=== PATIENT | female | born 1965 | race Caucasian/White ===

== ENCOUNTER 2017-05-04 13:38 | Day surgery (SDC) | payer BC ==
--- NOTE | ~2017-05-04 | EGD ---
EGD REPORT [facility] [address] [address] NAME: ALVIN NARVAEZ : [birth year] STATUS : REG [facility]#: [id number] AGE: 51 ADM/REG DATE : 05/04/17 MR#: [id number] REPORT SERV DATE: 05/04/17 DICTATED BY: KATIE JUNG DATE: 05/04/17 REPORT STATUS : Draft [facility]: [facility] DATE: 05/04/17 Endoscopy Center Patient Name: Alvin Narvaez Date of : 1965 Attending MD: KATIE JUNG, Procedure Date No Time: 05/04/2017 Procedure: Upper EUS Indications: Suspected solid pancreatic neoplasm Referring MD: Khurram Maya Medicines: Monitored Anesthesia Care Complications: No immediate complications. Estimated blood loss: None. Procedure: Pre-Anesthesia Assessment: - ASA Grade Assessment: II - A patient with mild systemic disease. After obtaining informed consent, the endoscope was passed under direct vision. Throughout the procedure, the patient's blood pressure, pulse, and oxygen saturations were monitored continuously. The Endoscope was introduced through the mouth, and advanced to the second part of duodenum. Findings: Endosonographic Finding : A round mass was identified in the pancreatic body. The mass was hypoechoic. The mass measured 31 mm by 28 mm in maximal cross-sectional diameter. The endosonographic borders were well-defined. There was sonographic evidence suggesting invasion into the splenic artery (manifested by encasement). An intact interface was seen between the mass and the portal vein, superior mesenteric vein, splenoportal confluence, celiac trunk and superior mesenteric artery suggesting a lack of invasion. Fine needle aspiration was performed. Color Doppler imaging was utilized prior to needle puncture to confirm a lack of significant vascular structures within the needle path. Six passes were made with the 22 gauge needle using a transgastric approach. A preliminary cytologic examination was not performed. Final cytology results are pending. There was no sign of significant endosonographic abnormality in the pancreatic head and in the genu of the pancreas. There was no sign of significant endosonographic abnormality in the common bile duct. No lymphadenopathy seen. There was no sign of significant endosonographic abnormality in the examined duodenum. There was no sign of significant endosonographic abnormality in the esophagus. EGD REPORT [place] [id number] [facility] [place]. [address] NAME: ALVIN NARVAEZ : [birth year] STATUS : REG [facility] PAT#: [id number] AGE: 51 ADM/REG DATE : 05/04/17 MR#: [id number] REPORT SERV DATE: 05/04/17 DICTATED BY: KATIE JUNG DATE: 05/04/17 REPORT STATUS : Draft [facility]ANSCRIBED BY: [facility] DATE: 05/04/17 Endosonographic images of the stomach were unremarkable. Impression: - A mass was identified in the pancreatic body. - There was no sign of significant pathology in the pancreatic head and in the genu of the pancreas. - There was no sign of significant pathology in the common bile duct. - There was no sign of significant pathology in the examined duodenum. - There was no sign of significant pathology in the esophagus. - Endosonographic images of the stomach were unremarkable. Recommendation: - Return to previous diet. - Continue present medications. - Await path results. - Return to referring physician. Procedure Code(s): --- Professional --- 27120, Esophagogastroduodenoscopy, flexible, transoral; with transendoscopic ultrasound-guided intramural or transmural fine needle aspiration/biopsy(s) (includes endoscopic ultrasound examination of the esophagus, stomach, and either the duodenum or a surgically altered stomach where the jejunum is examined distal to the anastomosis) Diagnosis Code(s): --- Professional --- K86.8, Other specified diseases of pancreas CPT copyright 2013 [employer]. All rights reserved. The codes documented in this report are preliminary and upon learning support teacher review may be revised to meet current compliance requirements. KATIE JUNG, 05/04/2017 4:28 PM Number of Addenda: 0 Note Initiated On: 05/04/2017 3:44 PM Scope Withdrawal Time 0 hours 0 minutes 0 seconds [id number] [id number]
[~2017-05-04 13:38] MED LIST: LISINOPRIL40 MG PO; LOP25 PO; RISP0.5 PO; SARAFEM20 M1 PO; T PO; ULTRAM50 PO; VITAMIN D31000 UNIT PO; WELLSR150 PO; ZYRTEC ALLGY10 MG PO
[2017-05-14] MEDS ORDERED: IBU400 PO (13:26)
== END 2017-05-04 23:59 | disposition home health service (06) ==
LOC: DMU 13:38
PROVIDERS: Internal Medicine Gastroenterology
PROC: 0DB58ZX Excision of Esophagus, Via Natural or Artificial Opening Endoscopic, Diagnostic (ICD-10-PCS; principal; 2017-05-04 17:30)
DX: K86.89 Other specified diseases of pancreas (principal); E78.5 Hyperlipidemia, unspecified; I10 Essential (primary) hypertension; F32.9 Major depressive disorder, single episode, unspecified; F41.9 Anxiety disorder, unspecified; E11.9 Type 2 diabetes mellitus without complications; E78.00 Pure hypercholesterolemia, unspecified; Z88.2 Allergy status to sulfonamides; Z88.8 Allergy status to other drugs, medicaments and biological substances; Z79.899 Other long term (current) drug therapy; Z87.891 Personal history of nicotine dependence; Z98.890 Other specified postprocedural states
CPT/HCPCS: 71010; 88173; 88305; 94640; A9270-GY; C1725

== ENCOUNTER 2017-05-17 09:48 | Day surgery (SDC) | payer BC ==
--- NOTE | ~2017-05-17 | EGD ---
EGD REPORT [facility] [address] [address] NAME: ALVIN NARVAEZ : [birth year] STATUS : REG [facility]#: [id number] AGE: 51 ADM/REG DATE : 05/17/17 MR#: [id number] REPORT SERV DATE: 05/17/17 DICTATED BY: KATIE JUNG DATE: 05/17/17 REPORT STATUS : Draft [facility]: [facility] DATE: 05/17/17 Endoscopy Center Patient Name: Alvin Narvaez Date of : 1965 Attending MD: KATIE JUNG, Procedure Date No Time: 05/17/2017 Procedure: Upper EUS Indications: Pancreatic adenocarcinoma, For celiac plexus neurolysis Referring MD: Khurram Maya Medicines: Monitored Anesthesia Care Complications: No immediate complications. Estimated blood loss: None. Procedure: Pre-Anesthesia Assessment: - ASA Grade Assessment: II - A patient with mild systemic disease. After obtaining informed consent, the endoscope was passed under direct vision. Throughout the procedure, the patient's blood pressure, pulse, and oxygen saturations were monitored continuously. The Endoscope was introduced through the mouth, and advanced to the second part of duodenum. The upper EUS was accomplished without difficulty. The patient tolerated the procedure well. The upper EUS was accomplished without difficulty. Findings: Endosonographic Finding : The region of the celiac plexus and celiac ganglia was visualized and showed no sign of significant endosonographic abnormality. The vascular anatomy of the region was normal. Celiac plexus neurolysis was performed. The region of the celiac plexus and celiac ganglia was identified endosonographically with Color Doppler imaging, using the take-off of the celiac trunk from the anterior aspect of the aorta as the main anatomical landmark. Color Doppler guidance was also used to confirm a lack of significant vascular structures within the injection needle path. Using a transgastric approach, a 22 gauge needle was advanced to the area of the celiac plexus. Needle aspiration was performed prior to injection to exclude entry into a blood vessel. A total of 10 mL of 0.75% bupivacaine and 20 (twenty) mL of dehydrated alcohol were injected for the celiac plexus neurolysis. The needle was then withdrawn. Impression: - Celiac plexus neurolysis performed. Recommendation: - Return to previous diet. - Continue present medications. - Return to referring physician. EGD REPORT [place] [id number] [facility]. [address] NAME: ALVIN NARVAEZ : [birth year] STATUS : REG [facility]#: [id number] AGE: 51 ADM/REG DATE : 05/17/17 MR#: [id number] REPORT SERV DATE: 05/17/17 DICTATED BY: KATIE JUNG DATE: 05/17/17 REPORT STATUS : Draft TRANSCRIBED BY: [facility] DATE: 05/17/17 Procedure Code(s): --- Professional --- 93404, Esophagogastroduodenoscopy, flexible, transoral; with transendoscopic ultrasound-guided transmural injection of diagnostic or therapeutic substance(s) (eg, anesthetic, neurolytic agent) or fiducial marker(s) (includes endoscopic ultrasound examination of the esophagus, stomach, and either the duodenum or a surgically altered stomach where the jejunum is examined distal to the anastomosis) Diagnosis Code(s): --- Professional --- C25.9, Malignant neoplasm of pancreas, unspecified CPT copyright 2013 [employer]. All rights reserved. The codes documented in this report are preliminary and upon equal opportunity counselor review may be revised to meet current compliance requirements. Attending Participation: I personally performed the entire procedure. KATIE JUNG, 05/17/2017 11:55 AM Number of Addenda: 0 Note Initiated On: 05/17/2017 11:27 AM Scope Withdrawal Time 0 hours 0 minutes 0 seconds [id number] [address]
[~2017-05-17 09:48] MED LIST changes: +IBU400 PO
== END 2017-05-17 23:59 | disposition home or self-care (01) ==
LOC: DMU 09:48
PROVIDERS: Internal Medicine Gastroenterology
PROC: 0DJ08ZZ Inspection of Upper Intestinal Tract, Via Natural or Artificial Opening Endoscopic (ICD-10-PCS; principal; 2017-05-17 13:30)
DX: C25.9 Malignant neoplasm of pancreas, unspecified (principal); I10 Essential (primary) hypertension; F32.9 Major depressive disorder, single episode, unspecified; F41.9 Anxiety disorder, unspecified; Z88.2 Allergy status to sulfonamides; Z88.1 Allergy status to other antibiotic agents; Z87.891 Personal history of nicotine dependence; Z79.899 Other long term (current) drug therapy; Z98.890 Other specified postprocedural states
CPT/HCPCS: C1725; J0360; J1956; J2250; J3010